=== PATIENT | male | born 1985 | race Caucasian/White ===

== ENCOUNTER 2020-04-05 06:32 | Emergency (ER) | payer SELFPAY ==
[2020-04-05] MEDS ORDERED: ALPRAZolam 0.25 MG Tab PO ONE (07:08)
--- NOTE | 2020-04-05 07:11 | EDM.PDOC ---
ED HPI GENERAL MEDICAL PROBLEM - General Chief Complaint: General Stated Complaint: ANXIETY Time Seen by Provider: 04/05/20 06:45 - History of Present Illness INITIAL COMMENTS - FREE TEXT/NARRATIVE: CHIEF COMPLAINT(S): "I think I am having an anxiety attack." HISTORY OF PRESENT ILLNESS: This is a 34-year-old man without any past medical history who comes to the emergency department with a chief complaint of "I think I am having an anxiety attack." The patient states that he cannot stop thinking about stuff. He states it all started last night around 1:59 AM. He states that he does not know the triggers however he recently lost his job and he is worried about Covid because his parents are getting old. He states that he has been having trouble with sleeping but denies any other symptoms. He denies any recent travel, recent surgery, prior history of DVT or PE. He denies any family history of blood clots or early onset CAD. He denies any swelling in his legs. He states that he did take 2 Tylenol PMs at approximately midnight which did not seem to help him. He denies any personal or family history of depression but states that his mother does have a history of anxiety. He denies any illicit substance use. He denies any chest pain, fever, chills. He states that he occasionally does get short of breath. REVIEW OF SYSTEMS: Constitutional: Denies fever, chills. Eyes: Denies eye pain Ears, Nose, Mouth, & Throat: Denies earache Cardiovascular: Denies chest pain, lower extremity edema Respiratory: Positive for occasional shortness of breath Gastrointestinal: Denies Nausea, vomiting, diarrhea, hematochezia. Genitourinary: Denies hematuria Skin:Denies a rash Neurological: Denies blurred vision, numbness, tingling, weakness Psychiatric: Denies depression PAST MEDICAL HISTORY: As per history of present illness and as reviewed below otherwise noncontributory. SURGICAL HISTORY: As per history of present illness and as reviewed below otherwise noncontributory. SOCIAL HISTORY: As per history of present illness and as reviewed below otherwise noncontributory. FAMILY HISTORY: As per history of present illness and as reviewed below otherwise noncontributory. EXAMINATION OF ORGAN SYSTEMS/BODY AREAS: Constitutional: Blood pressure was 118/78, heart rate 92, respiratory rate 16 with an oxygen saturation of 98% on room air. Temperature 36.6 General: Overall well-appearing man who is in no acute distress Psychiatric: Appropriate mood and affect. Eyes: No scleral icterus or conjunctival erythema ENMT: Moist mucous membranes. No pharyngeal erythema Cardiovascular: Regular, rate, and rhythm. No gallops, murmurs, or rubs. Bilateral upper extremity pulses symmetric and intact. No peripheral edema. No JVD. Respiratory: Lungs clear to auscultation bilaterally. No wheezes, rales, or rhonchi. Gastrointestinal: Soft, non-tender, non-distended. Normoactive bowel sounds Genitourinary: No suprapubic tenderness Musculoskeletal: Normal range of motion. Skin: No lesions or abrasions. Neurological: Alert, GCS 15 MEDICAL DECISION MAKING AND COURSE IN THE ED WITH INTERPRETATION/REVIEW OF DIAGNOSTIC STUDIES: This is a 34-year-old man without any past medical history who comes to the emergency department with increased social and life stressors who works experiencing insomnia and possibly anxiety attacks. At this time I do not believe any further work-up is indicated as it is vitals are normal and appears well. We will provide the patient with 0.25 mg of Xanax and he should follow-up with his primary care physician for further management and evaluation. I did discuss breathing exercises with him and discussed the importance of following up with primary care. He was amenable discharge at this time and had no further questions. Twelve-lead EKG interpreted by myself. Normal sinus rhythm at a rate of 84beats per minute. Normal axis. NC interval is 129ms. QRS duration is 95ms. ST segments are normal without elevations or depressions. S1Q3T3 is present without any other abnormalities. Hypertrophy not noted. No prior EKGs in the system. Interpretation: Normal sinus rhythm PERC Rule Age (>/=50): No (0) HR (>/=100): No (0) SaO2 on RA <95%: No (0) Unilateral Leg Swelling: No (0) Hemoptysis: No (0) Surgery/Trauma in last month requiring general anesthesia: No (0) Prior PE or DVT: : No (0) Hormone Use: No (0) PERC negative Since patient is PERC negative and pre-test probability <15%, there is no need for more intensive workup, <2% chance of PE DISPOSITION: The patient was discharged home in stable condition. The patient will follow up with primary care physician within 1 week CONDITION: Fair PROCEDURES: None FINAL IMPRESSION(S)/DIAGNOSES: 1. Acute anxiety 2. Acute insomnia Sean Tinoco M.D. - Related Data Allergies Allergy/AdvReac Type Severity Reaction Status Date / Time cefaclor [From Ceclor] Allergy Other Verified 04/05/20 06:44 Home Meds: Home Meds . [No Known Home Meds] 04/05/20 [History] Past Medical History - Past Health History Medical/Surgical History: Denies Medical/Surgical History - Infectious Disease History Infectious Disease History: Reports: Chicken Pox Social & Family History - Family History Family Medical History: No Pertinent Family History - Tobacco Use Tobacco Use Status *Q: Current Some Day Tobacco User Years of Tobacco use: 10 Packs/Tins Daily: 0 - Caffeine Use Caffeine Use: Reports: None - Recreational Drug Use Recreational Drug Use: No ED ROS GENERAL - Review of Systems Review Of Systems: See Below ED EXAM, GENERAL - Physical Exam Exam: See Below Course - Vital Signs Last Recorded V/S: Last Vital Signs Temp 36.6 C 04/05/20 06:42 Pulse 92 04/05/20 06:42 Resp 16 04/05/20 06:42 BP 118/78 04/05/20 06:42 Pulse Ox 98 04/05/20 06:42 - Orders/Labs/Meds Orders: Active Orders 24 hr Category Date Time Status EKG 12 Lead [EKG Documentation Completion] [RC] STAT Care 04/05/20 06:53 Active Meds: Medications Discontinued Medications Generic Name Dose Route Start Last Admin Trade Name Christian PRN Reason Stop Dose Admin Alprazolam 0.25 mg 04/05/20 07:08 Xanax PO 04/05/20 07:09 ONETIME ONE Departure - Departure Time of Disposition: 07:09 Disposition: Home, Self-Care 01 Condition: Fair Clinical Impression: Anxiety - Discharge Information *PRESCRIPTION DRUG MONITORING PROGRAM REVIEWED*: No *COPY OF PRESCRIPTION DRUG MONITORING REPORT IN PATIENT CONTRERAS: No Instructions: Managing Anxiety, Adult Referrals: Abel Lua MD [Primary Care Provider] - Forms: ED Department Discharge Additional Instructions: The patient is informed of any results of their evaluation and diagnostic workup and all questions are answered. They are given discharge instructions and return precautions. The patient is stable for discharge. The patient states they understand and agree with the plan and that they will return if their symptoms get worse or if they have any new concerns. The following information is given to patients seen in the emergency department who are being discharged to home. This information is to outline your options for follow-up care. We provide all patients seen in our emergency department with a follow-up referral. The need for follow-up, as well as the timing and circumstances, are variable depending upon the specifics of your emergency department visit. If you don't have a primary care physician on staff, we will provide you with a referral. We always advise you to contact your personal physician following an emergency department visit to inform them of the circumstance of the visit and for follow-up with them and/or the need for any referrals to a consulting specialist. The emergency department will also refer you to a specialist when appropriate. This referral assures that you have the opportunity for follow-up care with a specialist. All of these measure are taken in an effort to provide you with optimal care, which includes your follow-up. Under all circumstances we always encourage you to contact your private physician who remains a resource for coordinating your care. When calling for follow-up care, please make the office aware that this follow-up is from your recent emergency room visit. If for any reason you are refused follow-up, please contact the [facility] Emergency Department at and asked to speak to the emergency department charge nurse. You were evaluated today on an emergent basis. I do believe you are experiencing anxiety/panic attacks secondary to social stressors. I encourage you to do deep breathing exercises and to follow-up with primary care physician for further management. Please follow-up within 1 week. Return to the emergency department if you have any new or worsening symptoms such as chest pain, worsening shortness of breath, passing out, or swelling in legs. [facility] - [facility] [address] [place] [address] [facility] [address] [place] [address] Sepsis Event Note (ED) - Evaluation Sepsis Screening Result: No Definite Risk - Focused Exam Vital Signs: Vital Signs Temp Pulse Resp BP Pulse Ox 04/05/20 06:42 36.6 C 92 16 118/78 98 - My Orders Last 24 Hours: My Active Orders 04/05/20 06:53 EKG 12 Lead [EKG Documentation Completion] [RC] STAT - Assessment/Plan Last 24 Hours: My Active Orders 04/05/20 06:53 EKG 12 Lead [EKG Documentation Completion] [RC] STAT
[2020-04-05 07:34] VITALS: BP 118/77; PULSE 81
== END 2020-04-05 07:33 | disposition home or self-care (01) ==
LOC: MW.ED 06:32
DX: F41.9 Anxiety disorder, unspecified (principal); G47.00 Insomnia, unspecified; F17.210 Nicotine dependence, cigarettes, uncomplicated; Z88.1 Allergy status to other antibiotic agents
CPT/HCPCS: 93005; 99284; A9270; 93010; 99283